=== PATIENT | male | born 1965 | race Caucasian/White ===

== ENCOUNTER 2020-03-02 15:37 | Emergency (ER) | payer BC ==
[~2020-03-02] VITALS: Ht 177.8 cm; Wt 96.2 kg
[~2020-03-02 15:37] MED LIST: CARDURA4 MG PO; IMITREX100 MG PO; METHYLPHENIDATE20 MG PO; NORCO 5-325 TA1 EACH PO; NORFLEX100 MG PO; PLAVIX 75 MG TA75 M1 PO; PROTONIX40 M1 PO; REQUIP 1 MG TABL1 M1 PO; TOPAMAX 100 MG100 MG PO
[2020-03-02] MEDS ORDERED: ADDERALL 20 MG20 MG PO (16:00)
[2020-03-02 16:38] LABS: ABSOLUTE BASOPHILS 0.1 thou/uL (0.0-0.2); ABSOLUTE EOSINOPHILS 0.3 thou/uL (0.0-0.7); ABSOLUTE LYMPHOCYTES 1.9 thou/uL (0.8-5.3); ABSOLUTE MONOCYTES 0.9 thou/uL (0.0-1.2); ABSOLUTE NEUTROPHILS 4.4 thou/uL (1.6-8.1); BASOPHILS 0.9 %; EOSINOPHILS 3.8 %; HEMATOCRIT 43.5 % (42.0-52.0); HEMOGLOBIN 14.9 gm/dL (14.0-18.0); LYMPHOCYTES 25.1 %; MCH 31.8 pg (26.0-34.0); MCHC 34.2 g/dL (28.0-37.0); MCV 92.8 fL (80.0-100.0); MONOCYTES 11.6 %; MPV 8.5 fl. (7.2-11.1); NUCLEATED RBCS 0 /100WBC; PLATELET COUNT* 272 thou/uL (150-400); POLYS 58.6 %; RBC 4.69 mil/uL (4.50-6.00); RDW-CV 13.3 % (10.5-14.5); WBC 7.5 thou/uL (4.0-11.0)
[2020-03-02 16:46] LABS: CALCIUM 8.5 mg/dL (8.5-10.1); POTASSIUM 4.2 mmol/L (3.5-5.1)
[2020-03-02 16:58] LABS: INR 0.9; PROTIME 9.6 Seconds (9.20-11.50)
[2020-03-02 17:00] LABS: ALBUMIN 3.9 g/dL (3.4-5.0); CK-MB MASS 3.1 ng/mL (<0.5-3.6); MAGNESIUM 2.1 mg/dL (1.8-2.4); TOTAL BILIRUBIN 0.3 mg/dL (<0.1-1.0); TOTAL PROTEIN 7.6 g/dL (6.4-8.2)
[2020-03-02 17:15] VITALS: BP 128/79
--- NOTE | 2020-03-03 13:28 | EKG ---
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
== END 2020-03-02 17:15 | disposition home or self-care (01) ==
LOC: M.ERS 15:37
PROVIDERS: Family Medicine
DX: Z03.818 Encounter for observation for suspected exposure to other biological agents ruled out (principal); R07.89 Other chest pain; B34.9 Viral infection, unspecified; G43.909 Migraine, unspecified, not intractable, without status migrainosus; Z88.8 Allergy status to other drugs, medicaments and biological substances

== ENCOUNTER 2021-08-13 05:53 | Observation (INO) | payer BC ==
--- NOTE | ~2021-08-13 | OP ---
[facility] [address] [place] [address] OPERATIVE REPORT Name: SOFIA TAN Srinivas Room: [address] Lenka#: [id number] Admission: 08/13/21 Attend Phys: Rony Katz Discharge: Date of : 65 Report #: [id number] THIS REPORT FOR: cc: Nahid Davis Steve T. 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 OPERATION: Laparoscopic repair of paraesophageal hernia with partial fundoplication. SURGEON: Rony Katz MD CLOTHING PATTERN PREPARER: Kapil Martinez MD ANESTHESIA: General. ESTIMATED BLOOD LOSS: 50 mL SPECIMENS: None. DRAINS: None. DESCRIPTION OF PROCEDURE: After informed consent was obtained, the patient was brought to the operating room and placed supine. SCDs were placed and working, preoperative antibiotics were administered, general anesthesia was induced. The abdomen was prepped and draped in the usual sterile fashion. A 5 mm incision was made in the left upper quadrant. A 5 mm trocar was placed under direct vision. A pneumoperitoneum was established. He had numerous adhesions of the omentum and the transverse colon up to the abdominal wall. I placed 3 more trocars on the left side of the abdomen and took down these adhesions sharply with a LigaSure device. There was excellent hemostasis and after this had been performed, I was able to visualize the upper abdomen. The lysis of adhesions was very tedious and took approximately one hour. The liver was already stuck up to the anterior abdominal wall, so this retracted the liver up nicely. I was able to identify the distal stomach. Dissection was carried up to the right zander, which was identified. The left zander was identified. Adhesions of the stomach up to the abdominal wall were taken down with the LigaSure device. I was able to identify the previous wrap. He had a small paraesophageal hernia, which I was able to fully reduce. The right zander and left zander were fully identified. The distal esophagus [place] [address] OPERATIVE REPORT Name: DOMINICKSOFIA Espino Room: [address] Asher Og#: [id number] Admission: 08/13/21 Attend Phys: Rony Katz Discharge: Date of : 65 Report #: [id number] He had good intraabdominal esophagus measuring approximately 2 cm. No sutures were placed into the crura as the crural defect was very small and intact. Dr. Brandt at this time performed an EGD. Please see his separate note. At this time, the fundus had been fully mobilized. It was floppy. We then elected to perform a partial wrap. This was an anterior REGINE wrap. The fundus was grasped and a 2-0 V-Loc suture was used to suture it in a running fashion to the right zander. Sutures were placed up the right zander and then back down, which secured the wrap in place. The wrap having been nicely accomplished, the ports were then removed under direct vision. The skin was then closed with 4-0 Monocryl. Incisions were dressed with Steri-Strips. COMPLICATIONS: None. DISPOSITION: The patient was taken to recovery in satisfactory condition. By: 1120 1219Rony Katz MD /heide
[~2021-08-13 05:53] MED LIST changes: +ADDERALL 20 MG20 MG PO; +FLONASE 0.05%50 MCG NARES; +METHYLPHENIDATE PO; +METHYLPHENIDATE10 M4 PO; +PLAVIX 75 MG TA75 MG PO; +SINGULAIR 10 MG10 MG PO; +TROKENDI XR200 MG PO
[2021-08-13 06:49] LABS: HEMATOCRIT 40.8 % (42.0-52.0); HEMOGLOBIN 13.8 gm/dL (14.0-18.0); MCH 31.4 pg (26.0-34.0); MCHC 33.8 g/dL (28.0-37.0); MPV 7.7 fl. (7.2-11.1); RBC 4.39 mil/uL (4.50-6.00); RDW-CV 12.8 % (10.5-14.5); WBC 5.9 thou/uL (4.0-11.0)
[2021-08-13 06:56] LABS: CALCIUM 8.9 mg/dL (8.5-10.1); CREATININE 0.9 mg/dL (0.6-1.3); POTASSIUM 3.9 mmol/L (3.5-5.1)
--- NOTE | 2021-08-13 11:23 | EKG ---
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
--- NOTE | 2021-08-13 18:39 | NUR ---
PT ARRIVED TO FLOOR FROM PACU ABOUT 1700. PT STABLE. IV PATENT. PAIN CONTROLLED. LAP SITES C/D/I. WILL CONTINUE TO MONITOR.
[2021-08-13 19:45] VITALS: BP 138/82
[2021-08-14 00:08] VITALS: BP 153/72
[2021-08-14 03:51] VITALS: BP 123/78
--- NOTE | 2021-08-14 05:11 | NUR ---
PT HAS SLEPT ON AND OFF OVERNIGHT. UP AD HELENA IN ROOM. REPORTS HE IS VOIDING WITHOUT DIFFICULTY, HAS NOT PASSED GAS YET. RECEIVING PO PAIN MED X2 OVERNIGHT FOR CO ABD PAIN WITH FAIR RESULT. DENIES N/V. STATES HE FEELS BLOATED THIS MORNING AND HAS BEEN UP AMBULATING IN ROOM IN HOPES OF PASSING GAS OR BELCHING. LAP SITES TO ABD CDI, ABD SOFT. L HAND SL IV. CLEAR LIQUID DIET ORDERS. NO LABS THIS MORNING. VSS. ABLE TO USE CALL LITE AND MAKE NEEDS KNOWN.
[2021-08-14 08:00] VITALS: BP 130/78
[2021-08-14 15:04] VITALS: BP 137/87
[2021-08-14 16:17] VITALS: BP 123/79
--- NOTE | 2021-08-14 18:25 | NUR ---
I ASSUMED CARE OF THE PATIENT AT 0700. HE IS ALERT AND ORIENTED X4 AND UP AD HELENA IN HIS ROOM AND THE CHRISTOPHER. BED IS IN THE LOW LOCKED POSITION AND CALL LIGHT IS IN REACH. HOURLY ROUNDING IS COMPLETED AND PATIENT NEEDS ARE MET. PAIN IS MANAGED WITH PRN MEDS. PATIENT ONLY COMPLAINS OF NOT BEING ABLE TO BURP. THE DAY PROGRESSED HE WAS ABLE TO MOVE SOME GAS. HE STILL ONLY TOLERATES SMALL AMOUNTS OF LIQUID. PLAN IS FOR THE PATIENT TO DISCHARGE TO HOME TOMORROW. HE IS AVOIDING PAIN MEDS TO AVOID CONSTIPATION. 5 LAP SITES HAVE A SMALL AMOUNT OF SHADOWING, BUT OVERALL ARE DRY AND INTACT. WILL CONTINUE TO MONITOR.
[2021-08-14 20:00] VITALS: BP 128/82
[2021-08-15] VITALS: BP 122/68
[2021-08-15 03:52] VITALS: BP 122/68
--- NOTE | 2021-08-15 06:36 | NUR ---
PATIENT SLEPT WELL DURING THIS SHIFT. PT REQUESTED PAIN MEDICATION AT HS AND RECEIVD ONE HYDROCODONE. PT UP AD HELENA TO BATHROOM. PT WITH SALINE LOCK IN LT HAND. PT IS ON ROOM AIR. PT HAS 5 ABD LAP SITES FROM HERNIA REPAIR. SKIN ON ABDOMEN IS VERY RED FROM BEING SHAVED JUST PRIOR TO SURGERY. FREQUENTLY USED ITEMS AND CALL LIGHT WITHIN REACH. SIDERAILS UPX2. WILL CONTINUE TO MONITOR.
[2021-08-15 07:30] VITALS: BP 127/78
[2021-08-15 09:28] VITALS: BP 122/68
[2021-08-15 09:37] VITALS: BP 122/68
[2021-08-15 09:40] VITALS: BP 122/68
--- NOTE | 2021-08-15 10:11 | NUR ---
PATIENT VERBALIZED UNDERSTANDING OF DISCHARGE INSTRUCTIONS. IV D/C WITHOUT DIFFICULTY. DENIES NEED FOR PAIN MEDICATION. LAB SITES HAVE GLUE AND STERI STRIPS INTACT. NEW OINTMENT ORDERED FOR ABRASION RASH ON ABDOMEN. RX GIVEN TO PATIENT. DISCHARGE INSTRUCTIONS/DIET SHEETS GIVEN TO PATIENT. NO C/O N/V. REMAINS ON CLEAR DIET.
== END 2021-08-15 10:00 | disposition home or self-care (01) ==
LOC: M.TBA 05:53 → M.PRE 12:58 → M.3W 16:56
PROVIDERS: ADMIT Surgery; ATTEND Surgery
DX: K44.9 Diaphragmatic hernia without obstruction or gangrene (principal); Z20.822 Contact with and (suspected) exposure to COVID-19; K21.9 Gastro-esophageal reflux disease without esophagitis; G43.909 Migraine, unspecified, not intractable, without status migrainosus; Z79.899 Other long term (current) drug therapy

== ENCOUNTER 2021-08-19 03:32 | Emergency (ER) | payer BC ==
[~2021-08-19] VITALS: Ht 177.8 cm; Wt 86.2 kg
[2021-08-19] MEDS ORDERED: PREDNISONE50 MG PO (04:22)
[2021-08-19] MEDS ORDERED: BACTRIM DS TAB1 EACH PO (04:22)
[2021-08-19 04:25] VITALS: BP 132/72
== END 2021-08-19 04:25 | disposition home or self-care (01) ==
LOC: M.ERS 03:32
DX: R21 Rash and other nonspecific skin eruption (principal); G43.909 Migraine, unspecified, not intractable, without status migrainosus; Z79.899 Other long term (current) drug therapy; Z88.0 Allergy status to penicillin; Z88.8 Allergy status to other drugs, medicaments and biological substances